=== PATIENT | female | born 1995 | race Caucasian/White ===

== ENCOUNTER 2022-06-16 13:39 | Inpatient (IN) | payer OTHER ==
[2022-06-16 14:34] VITALS: BMI 28.0
[2022-06-16] MEDS: ELECTROLYTE-148 SOLN 1,000 ML IV SCH ×2 (15:25→21:45)
[2022-06-16 15:51] LABS: BASO % 0.3 % (0-2.0); EOS % 0.1 % (0-4.5); HEMATOCRIT 31.4 % (32.4-45.2); HEMOGLOBIN 10.1 GM/dL (10.7-15.3); LYMPH % 17.1 % (8-40); MCH 23.5 pg (25.7-33.7); MCHC 32.1 g/dl (32.0-36.0); MEAN CELL VOLUME 73.1 fl (80-96); MONO % 3.6 % (3.8-10.2); NEUT % 78.9 % (42.8-82.8); PLATELET COUNT 279 10^3/uL (134-434); RDW 16.8 % (11.6-15.6); WHITE BLOOD COUNT 9.2 K/mm3 (4.0-10.0)
[2022-06-16 15:57] LABS: INR 1.03 (0.83-1.09); PROTHROMBIN TIME (PATIENT) 11.8 SEC (9.7-13.0)
[2022-06-16 16:00] LABS: ACTIVATED PTT 28.4 SECONDS (25.2-36.5)
[2022-06-16 16:23] LABS: BLOOD UREA NITROGEN 8.1 mg/dL (7-18); CALCIUM 8.5 mg/dL (8.5-10.1)
[2022-06-16 16:27] LABS: CREATININE 0.6 mg/dL (0.55-1.3)
[2022-06-16 17:18] LABS: HIV INTERPRETATION NEGATIVE (NEGATIVE)
[2022-06-16] MEDS ORDERED: OXYTOCIN 30 UNITS in 0.9% NS 30 UNIT/500 ML INFUS.BAG IVPB SCH (21:00)
[2022-06-17] MEDS ORDERED: FENTANYL/BUPIVACAINE/NS/PF - PCEA - 50 ML DISP.SYRIN EP ONE ×2 (02:34→07:56)
[2022-06-17] MEDS ORDERED: BUPIVACAINE HCL/PF 0.25% (2.5MG/ML) 10 ML VIAL ONE (03:26)
[2022-06-17] MEDS ORDERED: NALOXONE HCL 0.4 MG/ML VIAL IVPUSH PRN (03:36)
[2022-06-17] MEDS: FENTANYL/BUPIVACAINE/NS/PF - PCEA - 50 ML DISP.SYRIN EP SCH (04:00)
[2022-06-17] MEDS: ELECTROLYTE-148 SOLN 1,000 ML IV SCH ×2 (04:30→09:00)
[2022-06-17] MEDS ORDERED: LIDOCAINE HCL 1% PRESERVATIVE FREE - 30ML VIAL ONE (08:51)
[2022-06-17] MEDS ORDERED: OXYTOCIN 20 UNITS in 0.9% NS 20 UNIT/1,000 ML INFUS.BAG IV ONE ×2 (08:52→12:41)
[2022-06-17] MEDS ORDERED: AMPICILLIN SODIUM 2 GM VIAL ONE (11:36)
[2022-06-17] MEDS ORDERED: GENTAMICIN SO4 80 MG/2 ML VIAL ONE (11:36)
[2022-06-17] MEDS ORDERED: ACETAMINOPHEN INJECTION 100 ML IVPB ONE (11:44)
[2022-06-17] MEDS ORDERED: CLINDAMYCIN 900 MG PREMIX IVPB 900 MG/50 ML BAG IVPB ONE (12:31)
[2022-06-17] MEDS ORDERED: METHYLERGONOVINE MALEATE 0.2 MG/1 ML AMP IM PRN (13:54)
[2022-06-17] MEDS ORDERED: WITCH HAZEL 50% (TUCKS) 40 PAD/JAR PAD TP PRN (13:54)
[2022-06-17] MEDS ORDERED: ACETAMINOPHEN 325 MG TABLET (FP) PO PRN (13:54)
[2022-06-17] MEDS ORDERED: OXYTOCIN 20 UNITS in 0.9% NS 20 UNIT/1,000 ML INFUS.BAG IV SCH (14:00)
[2022-06-17] MEDS ORDERED: ACETAMINOPHEN 1000 MG/100 ML BAG IVPB ONE (15:11)
[2022-06-17] MEDS ORDERED: AMPICILLIN - 2 GM in SODIUM CHLORIDE 100 ML IVPB ONE (15:12)
[2022-06-17] MEDS ORDERED: diphenhydrAMINE HCL 25 MG CAPSULE (FP) PO ONE (15:30)
[2022-06-17] MEDS: GENTAMICIN 80 MG PREMIXED IVPB 80 MG/100 ML BAG IVPB SCH (19:13)
[2022-06-17] MEDS ORDERED: GENTAMICIN 80 MG PREMIXED IVPB 80 MG/100 ML BAG IVPB SCH (20:00)
[2022-06-17] MEDS: IBUPROFEN 800 MG/8 ML IJ IVPB SCH (20:14)
[2022-06-17] MEDS: CLINDAMYCIN 900 MG PREMIX IVPB 900 MG/50 ML BAG IVPB SCH (20:15)
[2022-06-17] MEDS: ACETAMINOPHEN 1000 MG/100 ML BAG IVPB SCH (23:57)
[2022-06-18] MEDS: CLINDAMYCIN 900 MG PREMIX IVPB 900 MG/50 ML BAG IVPB SCH ×3 (01:02→18:08)
[2022-06-18] MEDS ORDERED: oxyCODONE HCL 5 MG TABLET PO PRN ×2 (01:54)
[2022-06-18] MEDS: GENTAMICIN 80 MG PREMIXED IVPB 80 MG/100 ML BAG IVPB SCH ×2 (04:22→12:14)
[2022-06-18] MEDS: IBUPROFEN 800 MG/8 ML IJ IVPB SCH ×3 (05:39→21:10)
[2022-06-18] MEDS: FENTANYL/BUPIVACAINE/NS/PF - PCEA - 50 ML DISP.SYRIN EP SCH (06:06)
[2022-06-18] MEDS: ACETAMINOPHEN 1000 MG/100 ML BAG IVPB SCH ×2 (06:58→12:00)
[2022-06-18 09:00] LABS: BASO % 0.1 % (0-2.0); HEMATOCRIT 26.8 % (32.4-45.2); HEMOGLOBIN 8.8 GM/dL (10.7-15.3); MCH 24.1 pg (25.7-33.7); MCHC 32.8 g/dl (32.0-36.0); MEAN CELL VOLUME 73.3 fl (80-96); MEAN PLT VOLUME 8.9 fl (7.5-11.1); MONO % 3.2 % (3.8-10.2); NEUT % 88.7 % (42.8-82.8); PLATELET COUNT 217 10^3/uL (134-434); RBC 3.65 M/mm3 (3.60-5.2); RDW 17.2 % (11.6-15.6); WHITE BLOOD COUNT 15.4 K/mm3 (4.0-10.0)
[2022-06-18] MEDS: IBUPROFEN 600 MG TABLET (FP) PO PRN ×2 (10:05→18:15)
[2022-06-18 11:15] VITALS: RESP 18
[2022-06-18] MEDS ORDERED: BISACODYL 10 MG SUPP.RECT RC PRN (13:54)
[2022-06-19] MEDS: SIMETHICONE 80 MG TAB.CHEW (FP) PO PRN ×2 (00:51→05:54)
[2022-06-19] MEDS: IBUPROFEN 600 MG TABLET (FP) PO PRN ×2 (00:51→05:54)
[2022-06-19] MEDS: IBUPROFEN 800 MG/8 ML IJ IVPB SCH ×2 (05:00→13:00)
[2022-06-19 10:38] VITALS: BP 100/56; PULSE 89; TEMP 97.5
== END 2022-06-19 13:25 | disposition home or self-care (01) | DRG 540 ==
LOC: JLDR 13:39 → J3W 06-17 16:00
PROVIDERS: ADMIT Obstetrics & Gynecology; ATTEND Obstetrics & Gynecology
PROC: 10D00Z1 Extraction of Products of Conception, Low, Open Approach (ICD-10-PCS; principal; 2022-06-17)
DX: O41.1230 Chorioamnionitis, third trimester, not applicable or unspecified (principal); O62.1 Secondary uterine inertia; Z3A.38 38 weeks gestation of pregnancy; Z37.0 Single live birth
CPT/HCPCS: 36415; 80048; 85025; 85610; 85730; 86780; 86850; 86900; 86901; 87389; 88307-TC; C9803-CS; U0003; U0005